=== PATIENT | male | born 1990 ===

== ENCOUNTER 2017-07-17 19:38 | Emergency (ER) | payer OTHER ==
[2017-07-17 19:57] VITALS: BP 125/89; PULSE 72; RESP 16; TEMP 98.3; O2SAT 97
[2017-07-17] MEDS ORDERED: Albuterol-Ipratrop 3 mg / 0.5 (3 ml) UD ONE (20:34)
[2017-07-17] MEDS: Albuterol-Ipratrop 3 mg / 0.5 (3 ml) UD IH SCH (20:38)
--- NOTE | 2017-07-17 21:41 | C.PDOC ---
History Of Present Illness 27 y/o male c/o persistent cough, congestion, and chest tightness for 2 months. Denies fever, chills, SOB, sick contact, recent travel, or any other complaints. Took OTC cough syrup with no relief Time Seen by Provider: 07/17/17 20:20 Chief Complaint (Nursing): Cough, Cold, Congestion History Per: Patient History/Exam Limitations: no limitations Current Symptoms Are (Timing): Still Present Sick Contacts (Context): None Associated Symptoms: denies: Fever, Chills Ear Symptoms: Bilateral: None Severity: Mild Recent travel outside of the [place]: No Additional History Per: Patient Past Medical History Reviewed: Historical Data, Nursing Documentation, Vital Signs Vital Signs: Last Vital Signs Temp 98.3 F 07/17/17 19:55 Pulse 72 07/17/17 19:55 Resp 16 07/17/17 19:55 BP 125/89 07/17/17 19:55 Pulse Ox 97 07/17/17 22:46 Family History: States: Unknown Family Hx - Social History Hx Alcohol Use: Yes Hx Substance Use: No - Immunization History Hx Tetanus Toxoid Vaccination: No Hx Influenza Vaccination: No Hx Pneumococcal Vaccination: No Review Of Systems Except As Marked, All Systems Reviewed And Found Negative. Constitutional: Negative for: Fever, Chills ENT: Positive for: Nose Congestion Cardiovascular: Positive for: Chest Pain (Tightness) Respiratory: Positive for: Cough. Negative for: Shortness of Breath Physical Exam - Physical Exam Appears: Non-toxic, No Acute Distress Skin: Warm, Dry Head: Atraumatic, Normacephalic Eye(s): bilateral: Normal Inspection Ear(s): Bilateral: Normal Oral Mucosa: Moist Throat: Normal, No Erythema Cardiovascular: Rhythm Regular Respiratory: Decreased Breath Sounds (Minimal), No Rales, Rhonchi, Wheezing ( Expiratory) Gastrointestinal/Abdominal: Soft, No Tenderness Neurological/Psych: Oriented x3 ED Course And Treatment O2 Sat by Pulse Oximetry: 97 (Nebulizer treatment) Pulse Ox Interpretation: Normal - Radiology CXR: Interpreted by Me, Viewed By Me CXR Interpretation: No: Infiltrates Progress Note: Plans: CXR, Prednisone, Nebulizer treatment. On reassessment, patient is resting comfortably with no wheezing, chest pain, or retractions. Oxygen saturation and breath sounds have improved. Patient was advised to follow up with physician/clinic in 1-2 days and return to ED if symptoms worsen or persist. Disposition Counseled Patient/Family Regarding: Diagnosis, Need For Followup, Rx Given - Disposition Referrals: [facility] [Outside] Disposition: HOME/ ROUTINE Disposition Time: 21:39 Condition: STABLE Additional Instructions: Please take meds as directed Increase PO fluids Return to ER if worse Prescriptions: Albuterol HFA [Ventolin HFA 90 mcg/actuation (8 g)] 2 puff IH [id number] #1 inh Azithromycin [Zithromax] 250 mg PO DAILY #6 tab Benzonatate [Tessalon Perles] 100 mg PO TID #20 sgl predniSONE [Prednisone] 40 mg PO DAILY #10 tab Instructions: Acute Bronchitis (ED) Forms: [employer] ([place]) - Clinical Impression Clinical Impression: Bronchitis - Scribe Statement The provider has reviewed the documentation as recorded by the Scribe Macarena storey All medical record entries made by the Scribe were at my direction and personally dictated by me. I have reviewed the chart and agree that the record accurately reflects my personal performance of the history, physical exam, medical decision making, and the department course for this patient. I have also personally directed, reviewed, and agree with the discharge instructions and disposition.
--- NOTE | 2017-07-18 08:06 | RAD ---
HISTORY: cough, chest tightness COMPARISON: No prior. TECHNIQUE: Chest PA and lateral FINDINGS: LUNGS: No infiltrate identified bilaterally. Hyperlucent lungs raise question of possible hyperinflation, particularly in the lateral view. PLEURA: No significant pleural effusion identified. No pneumothorax apparent. CARDIOVASCULAR: Normal. OSSEOUS STRUCTURES: No significant abnormalities. VISUALIZED UPPER ABDOMEN: Normal. OTHER FINDINGS: None. IMPRESSION: Potential hyperinflation though no infiltrate or pleural effusion identified bilaterally. Further clinical correlation advised.
== END 2017-07-17 21:48 | disposition home or self-care (01) ==
LOC: C.ER 19:38
DX: J40 Bronchitis, not specified as acute or chronic (principal)